=== PATIENT | male | born 1970 | race Caucasian/White ===

== ENCOUNTER 2019-03-19 11:26 | Emergency (ER) | payer SELFPAY ==
[2019-03-19] MEDS ORDERED: HYDROmorphone 0.5 MG/0.5 ML SYRINGE ONE ×2 (12:02→12:58)
[2019-03-19] MEDS ORDERED: Ondansetron PF 4 MG/2 ML Vial ONE (12:02)
[2019-03-19 12:08] LABS: #Basophils 0.1 thou/uL (0.0-0.2); #Eosinphils 0.2 thou/uL (0.0-0.7); #Lymphocytes 3.4 thou/uL (1.20-3.40); #Monocytes 1.5 thou/uL (0.11-0.59); #Neutrophils 12.6 thou/uL (1.40-6.50); %Basophils 0.8 % (0.0-1.0); %Eosinophils 0.9 % (0.0-10.0); %Lymphocytes 19.1 % (21.0-51.0); %Monocytes 8.6 % (0.0-10.0); %Neutrophils 70.6 % (42.0-75.0); Hemoglobin 14.3 g/dL (14.0-18.0); Mean Corpuscular HGB CONC 34.8 g/dL (32.0-36.0); Mean Corpuscular Hemoglobin 29.4 pg (27.0-31.0); Mean Corpuscular Volume 84.5 fL (78.0-98.0); Platelet Count 354 thou/uL (130-400); RBC Distribution Width 11.8 % (11.5-14.5); Red Blood Cell (RBC) Count 4.87 mill/uL (4.70-6.10); White Blood Cell (WBC) Count 17.9 thou/uL (4.8-10.8)
[2019-03-19 12:24] LABS: ALT (SGPT) 20 U/L (8-55); AST (SGOT) 16 U/L (5-34); Albumin 4.6 g/dL (3.5-5.0); Alkaline Phosphatase 101 U/L (40-150); Anion Gap 16 mmol/L (10-20); BUN (Urea Nitrogen) 17 mg/dL (8.9-20.6); Bilirubin, Total 0.5 mg/dL (0.2-1.2); Calc. Creatinine Clearance 0 mL/min (70-130); Calcium 9.6 mg/dL (7.8-10.44); Carbon Dioxide 24 mmol/L (22-29); Chloride 103 mmol/L (98-107); Estimated GFR-MDRD 79; Globulin 3.8 g/dL (2.4-3.5); Glucose 100 mg/dL (70-105); Lipase 35 U/L (8-78); Potassium 3.8 mmol/L (3.5-5.1); Protein, Total 8.4 g/dL (6.0-8.3); Sodium 139 mmol/L (136-145)
[2019-03-19] MEDS ORDERED: Piperacillin/Tazobactam 3.375 GM VIAL ONE (12:43)
[2019-03-19] MEDS ORDERED: Sodium Chloride 0.9% 100 ML ONE (12:44)
--- NOTE | 2019-03-19 13:08 | CT ---
CT ABDOMEN AND PELVIS: 03/19/19 PROVIDED CLINICAL HISTORY: Right sided abdominal pain. FINDINGS: Comparison is made with the CT dated 08/16/11. The visualized lung bases are free of significant opacity. The solid abdominal organs are suboptimall y evaluated in the absence of IV contrast material but demonstrate an unremarkable unenhanced CT appe arance. No evidence for urinary tract calculi or hydronephrosis. The appendix appears dilated especially proximally. Numerous appendicoliths are seen including an donny endicolith at the base of the appendix. There is mild fat stranding about the proximal appendix. There is no evidence for bowel obstruction. No additional fat stranding is evident. No evidence for s ignificant free fluid or free air. The osseous structures demonstrate no concerning lytic or blastic lesions. IMPRESSION: Findings compatible with acute appendicitis. POS: [facility]
[2019-03-19] MEDS ORDERED: Fentanyl 100 MCG/2 ML VIAL ONE (20:25)
== END 2019-03-19 13:14 | disposition short-term general hospital (02) ==
LOC: MADERS 11:26
DX: K35.80 Unspecified acute appendicitis (principal); F41.9 Anxiety disorder, unspecified; F31.9 Bipolar disorder, unspecified; F17.210 Nicotine dependence, cigarettes, uncomplicated; Z79.899 Other long term (current) drug therapy
CPT/HCPCS: 74176; 80053; 83605; 83690; 85025; 93005; 96365; 96375; 96376; J0131; J1170; J2405; J2543; J3010; J3490

== ENCOUNTER 2019-03-26 20:57 | Emergency (ER) | payer SELFPAY | END 2019-03-26 22:00 | disposition home or self-care (01) | LOC: MADERS 20:57 | DX: G89.18 Other acute postprocedural pain (principal); R10.9 Unspecified abdominal pain; R14.0 Abdominal distension (gaseous); F41.9 Anxiety disorder, unspecified; F31.9 Bipolar disorder, unspecified; F17.210 Nicotine dependence, cigarettes, uncomplicated; Z79.899 Other long term (current) drug therapy ==

== ENCOUNTER 2024-06-04 09:08 | Emergency (ER) | payer SELFPAY ==
[2024-06-04] MEDS ORDERED: Penicillin V Potassium 250 MG TAB ONE (09:40)
== END 2024-06-04 09:50 | disposition home or self-care (01) ==
LOC: MADERS 09:08
DX: K02.9 Dental caries, unspecified (principal); K03.81 Cracked tooth; F17.210 Nicotine dependence, cigarettes, uncomplicated
CPT/HCPCS: 99282